=== PATIENT | female | born 1990 | race Caucasian/White ===

== ENCOUNTER 2016-10-26 12:20 | Observation (INO) | payer OTHER ==
[~2016-10-26] VITALS: Ht 165.1 cm; Wt 79.4 kg
--- NOTE | 2016-10-26 15:14 | NUR ---
awaiting US report, pt rates pain 05/10, md orders rec'd Percocet 2 tads given with water, C/O nausea, no emesis, EFM off, Will monitor pain and wait for further orders
--- NOTE | 2016-10-26 15:39 | DIAGNOSTIC IMAGING REPORT ---
PROCEDURE: US OB DETAILED ANATOMIC INDICATION: 22 2/7 WEEKS , EDC 02/27/17, RLQ PAIN AND CRAMPS TECHNIQUE: Fried scale, color, and spectral Doppler images of the second trimester gravid uterus were obtained. COMPARISON: None. FINDINGS: A single living intrauterine is in vertex presentation. There is regular cardiac activity at a rate of 150 beats per minute. The placenta is anterior and away from the internal cervical os. The cervix is closed measuring approximately 4.8 cm in length. The amniotic fluid volume is subjectively normal. Biparietal diameter 5.4 cm at 22 weeks and 4-day Head circumference 20.6 cm at 22 weeks and 5-day Abdominal circumference 17.6 cm at 22 weeks and 4-day Femur length 3.7 cm at 21 weeks and 5-day Head to abdominal circumference ratio and femur length to abdominal circumference ratios are normal. Estimated weight 488 Grams Composite gestational age 22 weeks and 3 days, YINKA 02/26/2017 There was visualization of a number of normal structures including the intracranial contents, facial features, nuchal region, spine, four-chamber heart and outflow tracts to the extent that could be visualized, diaphragm, fluid-filled stomach, kidneys, abdomen, urinary bladder, upper and lower extremities, and genitals. A three-vessel umbilical cord, normal and placental cord insertion sites were seen. IMPRESSION: 1. Single living intrauterine with a composite gestational age of 22 weeks and 5 days, YINKA 02/26/2017 2. Symmetric and normal anatomy. 3. Right renal hydronephrosis. Left kidney normal.
--- NOTE | 2016-11-02 21:00 | PROGRESS NOTE ---
DATE OF SERVICE: 10/26/2016 ATTENDING PHYSICIAN/PROVIDER: Anurag Strickland MD CHIEF COMPLAINT: 1. Pelvic pain, rule out labor HISTORY OF PRESENT ILLNESS: The patient is a 4, para 3, who has had previous pregnancies and requiring progesterone weekly shots to suppress labor. The patient is late to care, seen somewhere else and I think has a transfer of care scheduled appointment with Dr. Calhoun in the next week. This is surgery day. I came up to see the patient after being called approximately 1:30 in the afternoon and she had an ultrasound performed after I evaluated the patient and showed it was a normal 8/10, as was expected for 23+ weeks. There was a right hydronephrosis noted on the patient. The infant was fine. The patient did well, was discharged home with some pain medication. She had some Percocet in the labor and delivery. Warnings, precautions were given. The patient was to follow up with us and then return as needed.
--- NOTE | 2016-11-08 11:35 | PROGRESS NOTE ---
DATE OF SERVICE: 10/26/2016 ATTENDING PHYSICIAN/PROVIDER: Anurag Strickland MD CHIEF COMPLAINT: 1. Pelvic pain 2. Abdominal pain 3. Approximately 30 weeks' gestation 4. No significant care HISTORY OF PRESENT ILLNESS: The patient is 22 weeks , with little care. She has a history significant for delivery, on progesterone weekly shots, and having deliveries at 35 and 37 weeks. She presents today with this history, new to the area, with an appointment with Dr. Calhoun or myself in the next few days. She is evaluated over several hours. She is found not to be in labor. An ultrasound is ordered, which confirms and some funneling. PLAN: The patient was to be scheduled to follow up at [facility]. Warnings and precautions were given, with her previous history.
== END 2016-10-26 19:30 | disposition home or self-care (01) ==
LOC: OBC SRH 12:20 → OB SRH 12:21 → OBC SRH 16:20 → OB SRH 16:20
PROVIDERS: ADMIT Obstetrics & Gynecology
DX: O99.89 Other specified diseases and conditions complicating pregnancy, childbirth and the puerperium (principal); R10.2 Pelvic and perineal pain; Z3A.23 23 weeks gestation of pregnancy
CPT/HCPCS: 40003; 40021; 90004; 95059

== ENCOUNTER 2016-11-24 11:15 | Outpatient (CLI) | payer OTHER | END 2016-11-24 23:00 | LOC: LAB SRH 11:15 | DX: Z34.92 Encounter for supervision of normal pregnancy, unspecified, second trimester (principal) | CPT/HCPCS: 90004; 90074; 90078; 90261; 90364; 90599; 90600; 90605; 90606; 90710; 90851; 92863; 93140; 98480; 99777 ==

== ENCOUNTER 2016-12-31 12:03 | Outpatient (CLI) | payer OTHER | END 2016-12-31 13:20 | disposition home or self-care (01) | LOC: OBC SRH 12:03 → OB SRH 12:04 → OBC SRH 13:20 | PROC: 4A0HXCZ Measurement of Products of Conception, Cardiac Rate, External Approach (ICD-10-PCS; principal; 2016-12-31) | DX: O47.03 False labor before 37 completed weeks of gestation, third trimester (principal); Z3A.31 31 weeks gestation of pregnancy ==

== ENCOUNTER 2017-01-08 17:14 | Outpatient (CLI) | payer OTHER | END 2017-01-08 21:20 | disposition home or self-care (01) | LOC: OBC SRH 17:14 → OB SRH 17:17 → OBC SRH 21:20 | PROC: 4A0HXCZ Measurement of Products of Conception, Cardiac Rate, External Approach (ICD-10-PCS; principal; 2017-01-08) | DX: O47.03 False labor before 37 completed weeks of gestation, third trimester (principal); Z3A.33 33 weeks gestation of pregnancy ==

== ENCOUNTER 2017-01-19 09:42 | Outpatient (CLI) | payer OTHER | END 2017-01-19 12:10 | disposition home or self-care (01) | LOC: OBC SRH 09:42 → OB SRH 09:44 → OBC SRH 12:10 | PROC: 4A0HXCZ Measurement of Products of Conception, Cardiac Rate, External Approach (ICD-10-PCS; principal; 2017-01-19) | DX: O47.03 False labor before 37 completed weeks of gestation, third trimester (principal); Z3A.35 35 weeks gestation of pregnancy ==

== ENCOUNTER 2017-01-26 12:52 | Outpatient (CLI) | payer OTHER | END 2017-01-26 13:45 | disposition home or self-care (01) | LOC: OBC SRH 12:52 → OB SRH 12:52 → OBC SRH 13:45 | PROC: 4A0HXCZ Measurement of Products of Conception, Cardiac Rate, External Approach (ICD-10-PCS; principal; 2017-01-26) | DX: Z03.71 Encounter for suspected problem with amniotic cavity and membrane ruled out (principal); Z3A.35 35 weeks gestation of pregnancy ==

== ENCOUNTER 2017-02-07 15:50 | Outpatient (CLI) | payer OTHER ==
--- NOTE | 2017-02-07 17:54 | DIAGNOSTIC IMAGING REPORT ---
PROCEDURE: US OB RE-EVALUATION INDICATION: SMALL FOR DATES TECHNIQUE: Fried scale, color and spectral Doppler images of the gravid uterus. COMPARISON: Compared to chest ultrasound on 10/26/2016. FINDINGS: Viable intrauterine in cephalic position. There is grade 3 right anterior placenta with generalized placental thickening (5.5 cm). Cord Doppler ratios are normal (1.90). No evidence of previa or abruption. Amniotic fluid is diminished at 6.4 cm (2.5th percentile). Limited anatomic survey is within normal limits and there is no evidence of edema. BPD 9.1 cm (36.7 weeks), HC 33.2 cm (38.0 weeks), HC 33.0 cm (37.0 weeks), FL 6.9 cm (35.5 weeks). There is moderate to marked right maternal hydronephrosis with mild dilation of the left renal collecting system. IMPRESSION: 1. Viable intrauterine at 36.7 weeks menstrual age (plus or minus 3 weeks). YINKA is 03/02/2017. 2. Normal growth. 3. Grade 3 anterior placenta with generalized placental thickening (5.5 cm). Etiology is not entirely clear, although one might consider the possibility of indolent infectious process, Rh disease, or placental insufficiency. 4. Normal cord Doppler ratios (1.9). 5. Markedly diminished amniotic fluid (MOISES is 6.4 cm, 2.5th percentile). 6. Marked right maternal hydronephrosis with mild dilation of the left renal collecting system (no change).
== END 2017-02-07 23:00 ==
LOC: US SRH 15:50
DX: O43.93 Unspecified placental disorder, third trimester (principal); Z3A.36 36 weeks gestation of pregnancy

== ENCOUNTER 2017-02-08 10:50 | Outpatient (CLI) | payer OTHER ==
--- NOTE | 2017-02-08 14:17 | DIAGNOSTIC IMAGING REPORT ---
PROCEDURE: US BIOPHYSICAL PROFILE (OB) INDICATION: SMALL FOR DATES TECHNIQUE: Fried scale ultrasound. COMPARISON: OB ultrasound 02/07/2017. FINDINGS: Normal movement, tone and MOISES (4.8 cm, largest pocket 3.2 cm). No breathing was observed. IMPRESSION: 1. Biophysical score 6/8.
== END 2017-02-08 12:45 | disposition home or self-care (01) ==
LOC: NST SRH 10:50 → OB SRH 10:54 → NST SRH 12:45
PROC: 4A0HXCZ Measurement of Products of Conception, Cardiac Rate, External Approach (ICD-10-PCS; principal; 2017-02-08)
DX: O36.5930 Maternal care for other known or suspected poor fetal growth, third trimester, not applicable or unspecified (principal); O43.893 Other placental disorders, third trimester; O41.03X0 Oligohydramnios, third trimester, not applicable or unspecified; Z3A.37 37 weeks gestation of pregnancy

== ENCOUNTER 2017-02-12 19:00 | Inpatient (IN) | payer OTHER ==
[~2017-02-12] VITALS: Ht 165.1 cm; Wt 89.4 kg
[2017-02-13 13:54] VITALS: BP 124/77
[2017-02-13 14:09] VITALS: BP 123/78
[2017-02-13 14:28] VITALS: BP 144/92
[2017-02-13 14:33] VITALS: BP 144/32
[2017-02-13 15:53] VITALS: BP 119/57
[2017-02-14] VITALS: BP 102/62
[2017-02-14 07:40] VITALS: BP 110/66
--- NOTE | 2017-02-14 10:15 | Provider's Discharge Care Plan ---
Problem, Goal, Plan Problem List 1. Normal labor and delivery Goals: Improve disease control Instructions: Follow up as needed
--- NOTE | 2017-02-14 10:15 | Provider's Discharge Care Plan ---
Problem, Goal, Plan Problem List 1. Normal labor and delivery Goals: Improve disease control Instructions: Follow up as needed
== END 2017-02-14 16:00 | disposition home or self-care (01) | DRG 560 ==
LOC: OBC SRH 19:00 → OB SRH 19:00 → OBC SRH 22:11 → OB SRH 22:13
PROVIDERS: ADMIT Obstetrics & Gynecology
PROC: 3E0P7GC Introduction of Other Therapeutic Substance into Female Reproductive, Via Natural or Artificial Opening (ICD-10-PCS; 2017-02-12)
PROC: 10E0XZZ Delivery of Products of Conception, External Approach (ICD-10-PCS; principal; 2017-02-13)
PROC: 10907ZC Drainage of Amniotic Fluid, Therapeutic from Products of Conception, Via Natural or Artificial Opening (ICD-10-PCS; 2017-02-13)
DX: O43.893 Other placental disorders, third trimester (principal); Z37.0 Single live birth; O41.03X0 Oligohydramnios, third trimester, not applicable or unspecified; Z3A.38 38 weeks gestation of pregnancy; O69.2XX0 Labor and delivery complicated by other cord entanglement, with compression, not applicable or unspecified
CPT/HCPCS: 40011; 40021; 82221; 90074; 90600; 90605; 90606; 91162; 91163; 95059